=== PATIENT | male | born 1985 | race Caucasian/White ===

== ENCOUNTER 2021-08-30 12:29 | Emergency (ER) | payer BC ==
[2021-08-30 13:28] VITALS: TEMP 98.3
[2021-08-30] MEDS ORDERED: BAMLANIVIMAB (EUA) 700 MG, ETESEVIMAB (EUA) 1,400 MG in SODIUM CHLORIDE 0.9% 50 ML IVPB ONE (14:45)
--- NOTE | 2021-08-30 14:46 | ED ---
Recheck HPI - General Chief Complaint: Recheck/Abnormal Lab/Rx Stated Complaint: Covid+/BAM Time Seen by Provider: 08/30/21 14:21 Source: patient, RN notes reviewed Mode of arrival: ambulatory Limitations: no limitations - History of Present Illness Initial Comments: Patient is a 35-year-old male that presents to the emergency department complaining of Covid-positive and increased shortness of breath. Patient notes he tested positive on the and had symptoms several days prior. Patient notes he came to the emergency room for monoclonal antibiotic. He denied any chest pain headache nausea vomiting diarrhea constipation fever fatigue chills. - Related Data Allergies Allergy/AdvReac Type Severity Reaction Status Date / Time No Known Allergies Allergy Verified 08/30/21 13:24 Review of Systems ROS Statement: Those systems with pertinent positive or pertinent negative responses have been documented in the HPI. ROS Other: All systems not noted in ROS Statement are negative. Past Medical History Past Medical History: No Reported History History of Any Multi-Drug Resistant Organisms: None Reported Past Surgical History: No Surgical Hx Reported Past Psychological History: No Psychological Hx Reported Smoking Status: Never smoker Past Alcohol Use History: None Reported Past Drug Use History: None Reported General Exam Limitations: no limitations General appearance: alert, in no apparent distress Head exam: Present: atraumatic, normocephalic, normal inspection Eye exam: Present: normal appearance, PERRL, EOMI. Absent: scleral icterus, conjunctival injection, periorbital swelling ENT exam: Present: normal exam, mucous membranes moist Neck exam: Present: normal inspection. Absent: tenderness, meningismus, lymphadenopathy Respiratory exam: Present: normal lung sounds bilaterally. Absent: respiratory distress, wheezes, rales, rhonchi, stridor Cardiovascular Exam: Present: regular rate, normal rhythm, normal heart sounds. Absent: systolic murmur, diastolic murmur, rubs, gallop, clicks Extremities exam: Present: normal inspection, full ROM, normal capillary refill. Absent: tenderness, pedal edema, joint swelling, calf tenderness Neurological exam: Present: alert, oriented X3 Psychiatric exam: Present: normal affect, normal mood Skin exam: Present: warm, dry, intact, normal color. Absent: rash Course Vital Signs 08/30/21 08/30/21 08/30/21 13:25 14:28 14:30 Temperature 98.3 F Pulse Rate 74 72 Respiratory 18 18 16 Rate Blood Pressure 166/83 192/100 O2 Sat by Pulse 100 99 Oximetry Medical Decision Making - Medical Decision Making 35-year-old male Covid positive plus and monoclonal antibiotic. Patient was well-appearing while signs within normal limits. Patient does meet criteria for monoclonal antibodies. He is agreeable to discharge home after. Case discussed with Dr. Silverio, patient discharge home after. Disposition Clinical Impression: COVID Disposition: HOME SELF-CARE Condition: Stable Instructions (If sedation given, give patient instructions): Coronavirus Disease 2019 (COVID-19) Additional Instructions: Please return to the Emergency Department if symptoms worsen or any other concerns. Is patient prescribed a controlled substance at d/c from ED?: No Referrals: Elmer Villanueva MD [Primary Care Provider] - 1-2 days Time of Disposition: 14:45
[2021-08-30] MEDS: SODIUM CHLORIDE 0.9% 50 ML IVPB ONE ×2 (15:15→16:17)
[2021-08-30] MEDS ORDERED: diphenhydrAMINE 50 MG/ML 1 ML VIAL IVP STA (15:33)
[2021-08-30] MEDS ORDERED: methylPREDNISolone SOD SUCCI 125 MG/2 ML VIAL IV STA (15:33)
[2021-08-30] MEDS ORDERED: FAMOTIDINE 20 MG/2 ML VIAL IV STA (15:33)
[2021-08-30] MEDS ORDERED: SODIUM CHLORIDE 0.9% 1,000 ML IV STA (15:38)
[2021-08-30 16:14] VITALS: BP 177/74; PULSE 68; RESP 18
== END 2021-08-30 16:48 | disposition home or self-care (01) ==
LOC: EC 12:29
DX: U07.1 COVID-19 (principal)
CPT/HCPCS: 93005; 99285; 96374; 96375 ×2; J1200; J2930; J3490